=== PATIENT | female | born 2000 | race African-American/Black ===

== ENCOUNTER 2023-09-30 11:17 | Emergency (ER) | payer OTHER, SELFPAY ==
--- NOTE | ~2023-09-30 | XR_ITS ---
Right Hand Technique: PA, oblique, and lateral views were obtained. Clinical History: Pain Findings: No acute fracture or dislocation is seen. Osseous alignment is anatomic. Joint spaces are p reserved. Soft tissues are unremarkable. Impression: Unremarkable right hand. Reviewed, dictated and finalized at location M. CTOR TRIAL Impression: Unremarkable right hand.
--- NOTE | ~2023-09-30 | XR_ITS ---
Right Forearm AP and lateral views of the right forearm were performed. Clinical History: Pain Findings: No fracture or dislocation is seen. Osseous alignment in anatomic. Joint spaces are prese rved. Soft tissues are unremarkable. Impression: Unremarkable exam. Reviewed, dictated and finalized at location . CONDUCTOR Impression: Unremarkable exam.
--- NOTE | ~2023-09-30 | XR_ITS ---
Right wrist Technique: PA, oblique, lateral, and ulnar deviation views were obtained. Clinical History: Pain Findings: No acute fracture or dislocation is seen. Osseous alignment is anatomic. Joint spaces are p reserved. Soft tissues are unremarkable. Impression: Unremarkable right wrist radiographs. Reviewed, dictated and finalized at location . UNTING ASSISTANT Impression: Unremarkable right wrist radiographs.
[2023-09-30 11:11] VITALS: BP 117/69; PULSE 92; RESP 15; TEMP 36.4; O2SAT 99
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
[2023-09-30] MEDS: ACETAMINOPHEN 500 MG TABLET 1000 MG PO (13:13)
[2023-09-30 13:29] VITALS: BP 115/69; PULSE 77; RESP 14; TEMP 36.6; O2SAT 99
== END 2023-09-30 13:31 | disposition home or self-care (01) ==
PROVIDERS: Emergency Provider Student in an Organized Health Care Education/Training Program
DX: O9A.212 Injury, poisoning and certain other consequences of external causes complicating pregnancy, second trimester (principal); S66.911A Strain of unspecified muscle, fascia and tendon at wrist and hand level, right hand, initial encounter; Z3A.15 15 weeks gestation of pregnancy; V49.40XA Driver injured in collision with unspecified motor vehicles in traffic accident, initial encounter
CPT/HCPCS: 73090; 73110; 73130; 99283; A9270